=== PATIENT | female | born 2000 | race Caucasian/White ===

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

== ENCOUNTER 2021-01-25 14:05 | Emergency (ER) | payer OTHER ==
[2021-01-25 14:27] LABS: BASOPHILS % (AUTO) 0.7 %; EOSINOPHILS # (AUTO) 0.1 10^3/uL (0.0-0.7); EOSINOPHILS % (AUTO) 1.8 %; HCT - HEMATOCRIT 40.9 % (37.0-47.0); HGB - HEMOGLOBIN 13.9 g/dL (12.0-16.0); LYMPHOCYTES # (AUTO) 1.7 10^3/uL (1.5-3.5); LYMPHOCYTES % (AUTO) 37.4 %; MEAN CORPUSCULAR HEMOGLOBIN 31.4 pg (27.0-31.0); MEAN CORPUSCULAR VOLUME 92.5 fL (81.0-99.0); MEAN PLATELET VOLUME 10.1 fL (7.9-10.8); MONOCYTES # (AUTO) 0.4 10^3/uL (0.0-1.0); MONOCYTES % (AUTO) 7.8 %; NEUTROPHILS # (AUTO) 2.4 10^3/uL (1.5-6.6); NEUTROPHILS % (AUTO) 52.3 %; PLT - PLATELET COUNT 218 10^3/uL (130-450); RED BLOOD COUNT 4.42 10^6/uL (4.20-5.40); RED CELL DISTRIBUTION WIDTH 12.2 % (12.0-15.0); WHITE BLOOD COUNT 4.5 x10^3/uL (4.8-10.8)
[2021-01-25] MEDS ORDERED: KETOROLAC 15 MG/ML VIAL IVP STA (14:32)
--- NOTE | 2021-01-25 14:33 | ED Physician Documentation ---
PD HPI ABD PAIN - Stated complaint Stated Complaint: ABD PX - Chief complaint Chief Complaint: Abd Pain - History obtained from History obtained from: Patient - Additional information Additional information: 20-year-old has had right mid and upper abdominal pain today not associate with fevers or vomiting. No chance of . No urinary complaints. She thought she may be constipated but had a BM this morning which did not change the pain. It is worse with movement. It radiates to the right flank. Nothing else makes it better or worse. She has not had this before. Review of Systems Ten Systems: 10 systems reviewed and negative Constitutional: denies: Fever, Chills Ears: reports: Reviewed and negative Nose: reports: Reviewed and negative Throat: reports: Reviewed and negative Cardiac: reports: Reviewed and negative Respiratory: reports: Reviewed and negative PD PAST MEDICAL HISTORY - Past Medical History Respiratory: Asthma GI: GERD - Past Surgical History Past Surgical History: No - Present Medications Home Medications: Ambulatory Orders Medication Instructions Recorded Confirmed Cefdinir 300 mg PO BID #20 cap 01/25/21 - Allergies Allergies/Adverse Reactions: Allergies Allergy/AdvReac Type Severity Reaction Status Date / Time shellfish derived Allergy Unknown Verified 01/25/21 14:12 soy Allergy Unknown Verified 01/25/21 14:12 - Social History Does the pt smoke?: No Smoking Status: Never smoker Does the pt drink ETOH?: No Does the pt have substance abuse?: No - Immunizations Immunizations are current?: Yes - POLST Patient has POLST: No PD ED PE NORMAL - Vitals Vital signs reviewed: Yes - General General: Alert and oriented X 3, No acute distress - HEENT HEENT: PERRL, EOMI - Neck Neck: Supple, no meningeal sign, No bony TTP - Cardiac Cardiac: RRR, No murmur - Respiratory Respiratory: No respiratory distress, Clear bilaterally - Abdomen Abdomen: Other (Points to the right mid and upper abdomen as the site of pain, however the pain is not reproducible with palpation. Bedside ultrasound shows a grossly normal gallbladder.) - Back Back: No CVA TTP, No spinal TTP - Derm Derm: Normal color, Warm and dry - Extremities Extremities: No edema, No calf tenderness / cord - Neuro Neuro: Alert and oriented X 3, Normal speech Results - Vitals Vitals: Vital Signs - 24 hr 01/25/21 14:09 Temperature 36.9 C Heart Rate 67 Respiratory 18 Rate Blood Pressure 125/64 O2 Saturation 99 Oxygen O2 Source Room air - Labs Labs: Laboratory Tests 01/25/21 01/25/21 01/25/21 14:22 14:23 14:23 WBC 4.5 L RBC 4.42 Hgb 13.9 Hct 40.9 MCV 92.5 MCH 31.4 H MCHC 34.0 RDW 12.2 Plt Count 218 MPV 10.1 Neut # (Auto) 2.4 Lymph # (Auto) 1.7 [place] # (Auto) 0.4 Eos # (Auto) 0.1 Baso # (Auto) 0.0 Absolute Nucleated RBC 0.00 Nucleated RBC % 0.0 Sodium 138 Potassium 3.7 Chloride 101 Carbon Dioxide 28 Anion Gap 9.0 BUN 14 Creatinine 0.6 Estimated GFR (MDRD) 127 Glucose 88 Calcium 9.1 Total Bilirubin 0.9 AST 23 ALT 29 Alkaline Phosphatase 45 Total Protein 8.3 H Albumin 4.6 Globulin 3.7 Albumin/Globulin Ratio 1.2 Lipase 27 Urine Color YELLOW Urine Clarity CLEAR Urine pH 8.0 H Ur Specific [place] 1.020 Urine Protein NEGATIVE Urine Glucose (UA) NEGATIVE Urine Ketones NEGATIVE Urine Occult Blood NEGATIVE Urine Nitrite NEGATIVE Urine Bilirubin NEGATIVE Urine Urobilinogen 0.2 (NORMAL) Ur Leukocyte Esterase TRACE H Urine RBC 0-5 Urine WBC 0-3 Ur Squamous Epith Cells FEW Squamous Urine Bacteria Few Urine Mucus Moderate Strands Ur Microscopic Review INDICATED Urine Culture Comments INDICATED Urine HCG, Qual NEGATIVE PD MEDICAL DECISION MAKING - ED course ED course: 20-year-old presents with right-sided abdominal pain, minimally if at all tender. Lab work demonstrates a soft positive urine with CT showing only right renal cyst. No appendicitis or gallbladder etiology. Will treat as pyelonephritis given the physical findings and complaint. Departure - Departure Disposition: 01 Home, Self Care Clinical Impression: Pyelonephritis Condition: Good Record reviewed to determine appropriate education?: Yes Instructions: Pyelonephritis Dc Prescriptions: Cefdinir 300 mg PO BID #20 cap Comments: Call your doctor to arrange a follow-up appointment, make the next available appointment. In the interim, return anytime if worse or if new symptoms develop. We will culture your urine, the results should be done in 48-72 hours. If an antibiotic change is necessary we will call you. Return if worse in the meantime, especially if you develop increasing flank pain, fevers, or cannot keep down the medication. Forms: Activity restrictions
[2021-01-25 14:39] LABS: ALBUMIN 4.6 g/dL (3.2-5.5); ALBUMIN/GLOBULIN RATIO 1.2 (1.0-2.2); BILIRUBIN,TOTAL 0.9 mg/dL (0.2-1.0); CALCIUM 9.1 mg/dL (8.5-10.3); CREATININE 0.6 mg/dL (0.4-1.0); POTASSIUM 3.7 mmol/L (3.5-5.0); TOTAL PROTEIN 8.3 g/dL (6.7-8.2)
[2021-01-25 14:44] LABS: BILIRUBIN,URINE NEGATIVE (NEGATIVE); GLUCOSE, URINE (UA) NEGATIVE (NEGATIVE); KETONES,URINE (UA) NEGATIVE (NEGATIVE); LEUKOCYTE ESTERASE, URINE TRACE (NEGATIVE); NITRITE,URINE NEGATIVE (NEGATIVE); OCCULT BLOOD,URINE NEGATIVE (NEGATIVE); PROTEIN,URINE NEGATIVE (NEGATIVE); UROBILINOGEN,URINE 0.2 (NORMAL) E.U./dL (NORMAL)
[2021-01-25 14:58] LABS: CLARITY,URINE CLEAR (CLEAR); HCG UR QUAL NEGATIVE
[2021-01-25 15:02] LABS: BACTERIA,URINE Few /HPF (None Seen); MUCUS,URINE Moderate Strands; RBC,URINE 0-5 /HPF (0-5); SQUAMOUS EPITHELIAL CELL,UR FEW Squamous (<= Few); WBC,URINE 0-3 /HPF (0-5)
[2021-01-25] MEDS ORDERED: IOPAMIDOL-300 100 ML VIAL ONE (16:07)
--- NOTE | 2021-01-25 16:13 | CT Report ---
PROCEDURE: Abdomen/Pelvis W INDICATIONS: IV only, R abd pain CONTRAST: IV CONTRAST: Isovue 300 ml: 100 PO CONTRAST: *NO PO CONTRAST TECHNIQUE: After the administration of IV contrast, 5 mm thick sections acquired from the diaphragms to the symp hysis. 5 mm thick coronal and sagittal reformats were acquired. For radiation dose reduction, the f ollowing was used: automated exposure control, adjustment of mA and/or kV according to patient size. COMPARISON: None. FINDINGS: ABDOMEN: Lung bases: Normal Heart:Normal. Liver: Normal. Gallbladder: Normal. Bile ducts: Normal. Pancreas: Normal. Spleen: Normal. Adrenals: Normal. Kidneys and ureters: Incidentally noted subcentimeter right renal cyst. No hydronephrosis. Stomach and duodenum: Normal. Bowel: Normal appendix. No evidence of bowel obstruction. No definite bowel wall thickening. Other: No free fluid or air. Abdominal nodes: Normal. Aorta: Normal in size. IVC: Normal. Ventral wall: Normal. PELVIS: Bladder: Normal. Pelvic nodes: Normal. Inguinal: No hernia. Bones: No vertebral body compression fracture. No suspicious bone lesion. IMPRESSION: No acute abnormality. Normal appearance of the appendix. Right renal cyst. Reviewed by: Remi Mike MD on 01/25/2021 4:11 PM PDT Approved by: Remi Mike MD on 01/25/2021 4:11 PM PDT Station ID: [id number]
[2021-01-25 16:42] VITALS: BP 105/63
[2021-01-25] MEDS ORDERED: IOPAMIDOL-300 100 ML VIAL IVP ONE (17:23)
== END 2021-01-25 16:51 | disposition home or self-care (01) ==
LOC: ED 14:05
DX: N12 Tubulo-interstitial nephritis, not specified as acute or chronic (principal)
CPT/HCPCS: 36415; 74177; 80053; 81001; 81025; 83690; 85025; 87086; 96374; 99284; A9270; Q9967; 81003

== ENCOUNTER 2021-02-11 08:00 | Outpatient (CLI) | payer OTHER | END 2021-02-11 23:59 | disposition home or self-care (01) | LOC: LAB.N 08:00 | PROVIDERS: ATTEND Physician Assistant Medical | DX: J01.90 Acute sinusitis, unspecified (principal); Z20.822 Contact with and (suspected) exposure to COVID-19 ==

== ENCOUNTER 2021-02-12 09:39 | Emergency (ER) | payer OTHER ==
--- NOTE | 2021-02-12 09:52 | ED Physician Documentation ---
PD HPI URI - Stated complaint Stated Complaint: NOSE BLEED/COUGH CONGESTION - History obtained from History obtained from: Patient - History of Present Illness Timing - onset: How many days ago (3) Timing duration: Days (several) Timing details: Gradual onset, Still present Associated symptoms: Chills, Nasal congestion, Rhinorrhea (with mild bleeding at times, and brief more nosebleed this morning after blowing nose.), Sore throat, Dry cough. No: Chest pain, Dyspnea Contributing factors: Sick contact (she was camping with family members that were sick; they tested positive for COVID few days ago. Patient got COVID test yesterday, but results not back yet. Feeling ill.). No: Unimmunized (She states she had both shots of the Covid vaccine in September.) Improves by: No: Medication (not improved with Ibuprofen last night.) Worsened by: Activity Similar symptoms before: Has not had sx before Recently seen: Clinic (had COVID test at walk in clinic yesterday; results pending. No Rx given.) Review of Systems Constitutional: reports: Chills, Myalgias, Fatigue. denies: Fever Ears: reports: Ear pain (fullness right ear) Nose: reports: Rhinorrhea / runny nose, Congestion, Epistaxis (brief today and last night) Throat: reports: Sore throat Respiratory: reports: Cough. denies: Dyspnea, Wheezing GI: reports: Nausea. denies: Vomiting, Diarrhea Skin: denies: Rash Neurologic: reports: Generalized weakness. denies: Near syncope, Headache PD PAST MEDICAL HISTORY - Past Medical History Cardiovascular: None Respiratory: Asthma Neuro: None Endocrine/Autoimmune: None GI: GERD - Past Surgical History Past Surgical History: No - Present Medications Home Medications: Ambulatory Orders Medication Instructions Recorded Confirmed Cefdinir 300 mg PO BID #20 cap 01/25/21 Cetirizine [ZyrTEC] 10 mg PO BID #20 tablet 02/12/21 Oxymetazoline HCl [Afrin] 1 spray NS Q6H PRN #15 ml 02/12/21 dexAMETHasone [Decadron] 4 mg PO DAILY #5 tablet 02/12/21 - Allergies Allergies/Adverse Reactions: Allergies Allergy/AdvReac Type Severity Reaction Status Date / Time shellfish derived Allergy Unknown Verified 02/12/21 09:57 soy Allergy Unknown Verified 02/12/21 09:57 - Social History Does the pt smoke?: No Smoking Status: Never smoker Does the pt drink ETOH?: No Does the pt have substance abuse?: No - Immunizations Immunizations are current?: Yes - POLST Patient has POLST: No PD ED PE NORMAL - Vitals Vital signs reviewed: Yes - General General: Alert and oriented X 3, Well developed/nourished - HEENT HEENT: Ears normal (with some fluid fullness behind, but no redness. ) - Neck Neck: Supple, no meningeal sign, No adenopathy - Cardiac Cardiac: RRR, No murmur - Respiratory Respiratory: No respiratory distress, Clear bilaterally - Abdomen Abdomen: Soft, Non tender - Derm Derm: Normal color, Warm and dry, No rash - Neuro Neuro: Alert and oriented X 3, No motor deficit, Normal speech Results - Vitals Vitals: Vital Signs - 24 hr 02/12/21 02/12/21 09:57 11:06 Temperature 37.2 C Heart Rate 80 86 Respiratory 16 18 Rate Blood Pressure 108/90 H 132/64 H O2 Saturation 100 100 Oxygen O2 Source Room air PD MEDICAL DECISION MAKING - ED course Complexity details: considered differential (She had Covid test done yesterday so the result will be faster than also obtain a new 1 today as no indication for a rapid test here. She may have upper respiratory viral illness from another virus but given her close contact with Covid positive family members, most likely to be that.), d/w patient ED course: The patient has been previously vaccinated 4 months ago for Covid with both doses. As such, if she has Covid now it is likely to be just unknowingly symptomatic as it is currently. However she is should still be off work and rested and we can provide some symptom relief. Departure - Departure Disposition: 01 Home, Self Care Clinical Impression: Exposure to COVID-19 virus Upper respiratory infection Qualifiers: URI type: unspecified URI Qualified Code(s): J06.9 - Acute upper respiratory infection, unspecified Condition: Stable Record reviewed to determine appropriate education?: Yes Prescriptions: Oxymetazoline HCl [Afrin] 1 spray NS Q6H PRN #15 ml PRN Reason: Cold Symptons dexAMETHasone [Decadron] 4 mg PO DAILY #5 tablet Cetirizine [ZyrTEC] 10 mg PO BID #20 tablet Comments: Presumably your Covid test should result today or tomorrow if it was obtained yesterday. Stay well-hydrated. Off work today and tomorrow due to feeling ill as well as allowing time for the test results. For the congestion you can use cetirizine twice daily and also Decadron anti- inflammatory daily as directed. Use the Afrin spray periodically today and tomorrow to help with congestion and also to decrease blood flow in the nostrils and therefore less bleeding. Also obtain some saline nose spray and use that frequently through the day to keep it moisturized. Tylenol or ibuprofen as needed for fevers or pains. Forms: Activity restrictions Discharge Date/Time: 02/12/21 11:11
[2021-02-12] MEDS ORDERED: DEXAMETHASONE 10 MG/ML VIAL PO STA (10:16)
[2021-02-12] MEDS ORDERED: ACETAMINOPHEN 325 MG TABLET PO STA (10:16)
[2021-02-12] MEDS ORDERED: CETIRIZINE 10 MG TABLET PO STA (10:16)
[2021-02-12] MEDS ORDERED: OXYMETAZOLINE HCL 100 SPRAYS BOTTLE NAS STA (10:16)
[2021-02-12] MEDS ORDERED: CHERRY SYRUP 10 ML UDC PO ONE (10:16)
[2021-02-12 11:07] VITALS: BP 132/64
== END 2021-02-12 11:11 | disposition home or self-care (01) ==
LOC: ED 09:39
DX: J06.9 Acute upper respiratory infection, unspecified (principal); Z20.822 Contact with and (suspected) exposure to COVID-19
CPT/HCPCS: 99282; 99283; A9270

== ENCOUNTER 2021-03-10 08:00 | Outpatient (CLI) | payer OTHER ==
--- NOTE | 2021-03-10 17:05 | XRAY Report ---
PROCEDURE: Knee 2 View RT INDICATIONS: R KNEE PX TECHNIQUE: 2 views of the right knee(s) were acquired. COMPARISON: None. FINDINGS: Bones: No fractures or dislocations. No suspicious bony lesions. Soft tissues: No joint effusion. No suspicious soft tissue calcifications. IMPRESSION: No acute osseous abnormality. Reviewed by: Tristen Woodson MD on 03/10/2021 4:04 PM MARY Approved by: Tristen Woodson MD on 03/10/2021 4:04 PM [facility] Station ID: [id number]
== END 2021-03-10 23:59 | disposition home or self-care (01) ==
LOC: DI.N 08:00
PROVIDERS: ATTEND Family Medicine
DX: M25.561 Pain in right knee (principal)

== ENCOUNTER 2023-05-02 00:18 | Emergency (ER) | payer OTHER ==
[2023-05-02] MEDS ORDERED: SODIUM CHLORIDE 0.9% 1,000 ML IV STA (00:42)
[2023-05-02 00:48] LABS: BASOPHILS # (AUTO) 0.1 10^3/uL (0.0-0.1); BASOPHILS % (AUTO) 0.4 %; EOSINOPHILS # (AUTO) 0.1 10^3/uL (0.0-0.7); HCT - HEMATOCRIT 40.9 % (37.0-47.0); HGB - HEMOGLOBIN 13.9 g/dL (12.0-16.0); LYMPHOCYTES # (AUTO) 0.7 10^3/uL (1.5-3.5); LYMPHOCYTES % (AUTO) 5.2 %; MEAN CORPUSCULAR VOLUME 91.1 fL (81.0-99.0); MONOCYTES # (AUTO) 0.8 10^3/uL (0.0-1.0); MONOCYTES % (AUTO) 5.6 %; NEUTROPHILS % (AUTO) 87.5 %; PLT - PLATELET COUNT 241 10^3/uL (130-450); RED BLOOD COUNT 4.49 10^6/uL (4.20-5.40); RED CELL DISTRIBUTION WIDTH 11.9 % (12.0-15.0); WHITE BLOOD COUNT 13.7 x10^3/uL (4.8-10.8)
[2023-05-02 00:59] LABS: ALBUMIN 4.8 g/dL (3.2-5.5); ALBUMIN/GLOBULIN RATIO 1.6 (1.0-2.2); BILIRUBIN,TOTAL 0.7 mg/dL (0.2-1.0); CALCIUM 9.4 mg/dL (8.5-10.3); CREATININE 0.7 mg/dL (0.6-1.3); POTASSIUM 3.6 mmol/L (3.5-4.5); TOTAL PROTEIN 7.8 g/dL (6.4-8.9)
[2023-05-02 01:06] LABS: BILIRUBIN,URINE NEGATIVE (NEGATIVE); GLUCOSE, URINE (UA) NEGATIVE (NEGATIVE); KETONES,URINE (UA) TRACE mg/dL (NEGATIVE); LEUKOCYTE ESTERASE, URINE SMALL (NEGATIVE); NITRITE,URINE NEGATIVE (NEGATIVE); OCCULT BLOOD,URINE NEGATIVE (NEGATIVE); PROTEIN,URINE NEGATIVE (NEGATIVE); UROBILINOGEN,URINE 0.2 (NORMAL) E.U./dL (NORMAL)
--- NOTE | 2023-05-02 01:27 | ED Physician Documentation ---
PD HPI ABD PAIN - Stated complaint Stated Complaint: FEVER/VOMITING/ABD PX - Chief complaint Chief Complaint: Abd Pain - History obtained from History obtained from: Patient - Additional information Additional information: HPI from patient. Patient complains of abdominal pain associate with nausea and vomiting, sore throat, bilateral ear pain. She has had fevers at home with Tmax 100.4 this evening. She has had abdominal discomfort for several days, but becoming worse since this afternoon. The sore throat and ear pain started this morning. She denies shortness of breath, cough. Denies diarrhea. The abdominal pain is exacerbated with palpation. Review of Systems Constitutional: reports: Fever Ears: reports: Ear pain Throat: reports: Sore throat Cardiac: reports: Reviewed and negative Respiratory: reports: Reviewed and negative GI: reports: Abdominal Pain, Nausea, Vomiting. denies: Diarrhea : denies: Now EGA Skin: denies: Rash PD PAST MEDICAL HISTORY - Past Medical History Past Medical History: Yes Cardiovascular: None Respiratory: Asthma Neuro: None Endocrine/Autoimmune: None GI: GERD - Past Surgical History Past Surgical History: No - Present Medications Home Medications: Ambulatory Orders Medication Instructions Recorded Confirmed cephALEXin [Keflex] 500 mg PO BID #19 cap 05/02/23 - Allergies Allergies/Adverse Reactions: Allergies Allergy/AdvReac Type Severity Reaction Status Date / Time shellfish derived Allergy Unknown Verified 05/02/23 00:30 soy Allergy Unknown Verified 05/02/23 00:30 - Social History Does the pt smoke?: No Smoking Status: Never smoker Does the pt drink ETOH?: No Does the pt have substance abuse?: No - Immunizations Immunizations are current?: Yes - POLST Patient has POLST: No PD ED PE NORMAL - Vitals Vital signs reviewed: Yes - General General: Alert and oriented X 3, No acute distress, Well developed/nourished - Cardiac Cardiac: No murmur - Respiratory Respiratory: No respiratory distress, Clear bilaterally - Abdomen Abdomen: Soft, Non distended, Other (diffuse TTP , most pronounced across lower abdomen and RLQ>LLQ) PD ED PE EXPANDED - Cardiac Cardiac: Tachy, Regular Rhythm Results - Vitals Vitals: Vital Signs - 24 hr 05/02/23 05/02/23 05/02/23 00:27 01:34 02:36 Temperature 37.7 C 36.4 C L Heart Rate 109 H 107 H 87 Respiratory 18 18 16 Rate Blood Pressure 127/78 110/78 106/64 O2 Saturation 100 98 95 05/02/23 05/02/23 04:02 04:45 Temperature 37.4 C 36.9 C Heart Rate 94 89 Respiratory 16 16 Rate Blood Pressure 109/64 110/64 O2 Saturation 100 99 Oxygen O2 Source Room air - Labs Labs: Laboratory Tests 05/02/23 05/02/23 05/02/23 00:40 00:40 00:40 WBC 13.7 H RBC 4.49 Hgb 13.9 Hct 40.9 MCV 91.1 MCH 31.0 MCHC 34.0 RDW 11.9 L Plt Count 241 MPV 11.0 H Neut # (Auto) 12.0 H Lymph # (Auto) 0.7 L [place] # (Auto) 0.8 Eos # (Auto) 0.1 Baso # (Auto) 0.1 Absolute Nucleated RBC 0.00 Nucleated RBC % 0.0 Sodium 137 Potassium 3.6 Chloride 103 Carbon Dioxide 28 Anion Gap 6.0 BUN 10 Creatinine 0.7 Estimated GFR (MDRD) 105 Glucose 108 H Calcium 9.4 Total Bilirubin 0.7 AST 16 ALT 11 Alkaline Phosphatase 46 Total Protein 7.8 Albumin 4.8 Globulin 3.0 Albumin/Globulin Ratio 1.6 Lipase 19 Urine Color YELLOW Urine Clarity CLEAR Urine pH 6.0 Ur Specific [place] 1.020 Urine Protein NEGATIVE Urine Glucose (UA) NEGATIVE Urine Ketones TRACE Urine Occult Blood NEGATIVE Urine Nitrite NEGATIVE Urine Bilirubin NEGATIVE Urine Urobilinogen 0.2 (NORMAL) Ur Leukocyte Esterase SMALL H Urine RBC None Seen Urine WBC 6-10 H Ur Squamous Epith Cells MOD Squamous H Urine Bacteria Rare Ur Microscopic Review INDICATED Urine Culture Comments NOT INDICATED Urine HCG, Qual Nasal Adenovirus (PCR) Nasal B. parapertussis DNA (PCR) Nasal Coronavir 229E PCR Nasal Coronavir HKU1 PCR Nasal Coronavir NL63 PCR Nasal Coronavir OC43 PCR Nasal Enterovir/Rhinovir PCR Nasal Influenza B PCR Nasal Influenza A PCR Nasal Parainfluen 1 PCR Nasal Parainfluen 2 PCR Nasal Parainfluen 3 PCR Nasal Parainfluen 4 PCR Nasal RSV (PCR) Nasal B.pertussis DNA PCR Nasal C.pneumoniae (PCR) Adam Human Metapneumo PCR Nasal M.pneumoniae (PCR) Nasal SARS-CoV-2 (PCR) Infectious [place] Assay Group A Strep Rapid 05/02/23 05/02/23 05/02/23 00:40 00:40 01:54 WBC RBC Hgb Hct MCV MCH MCHC RDW Plt Count MPV Neut # (Auto) Lymph # (Auto) [place] # (Auto) Eos # (Auto) Baso # (Auto) Absolute Nucleated RBC Nucleated RBC % Sodium Potassium Chloride Carbon Dioxide Anion Gap BUN Creatinine Estimated GFR (MDRD) Glucose Calcium Total Bilirubin AST ALT Alkaline Phosphatase Total Protein Albumin Globulin Albumin/Globulin Ratio Lipase Urine Color Urine Clarity Urine pH Ur Specific [place] Urine Protein Urine Glucose (UA) Urine Ketones Urine Occult Blood Urine Nitrite Urine Bilirubin Urine Urobilinogen Ur Leukocyte Esterase Urine RBC Urine WBC Ur Squamous Epith Cells Urine Bacteria Ur Microscopic Review Urine Culture Comments Urine HCG, Qual NEGATIVE Nasal Adenovirus (PCR) Nasal B. parapertussis DNA (PCR) Nasal Coronavir 229E PCR Nasal Coronavir HKU1 PCR Nasal Coronavir NL63 PCR Nasal Coronavir OC43 PCR Nasal Enterovir/Rhinovir PCR Nasal Influenza B PCR Nasal Influenza A PCR Nasal Parainfluen 1 PCR Nasal Parainfluen 2 PCR Nasal Parainfluen 3 PCR Nasal Parainfluen 4 PCR Nasal RSV (PCR) Nasal B.pertussis DNA PCR Nasal C.pneumoniae (PCR) Adam Human Metapneumo PCR Nasal M.pneumoniae (PCR) Nasal SARS-CoV-2 (PCR) Infectious [place] Assay POSITIVE A Group A Strep Rapid POSITIVE H 05/02/23 01:54 WBC RBC Hgb Hct MCV MCH MCHC RDW Plt Count MPV Neut # (Auto) Lymph # (Auto) [place] # (Auto) Eos # (Auto) Baso # (Auto) Absolute Nucleated RBC Nucleated RBC % Sodium Potassium Chloride Carbon Dioxide Anion Gap BUN Creatinine Estimated GFR (MDRD) Glucose Calcium Total Bilirubin AST ALT Alkaline Phosphatase Total Protein Albumin Globulin Albumin/Globulin Ratio Lipase Urine Color Urine Clarity Urine pH Ur Specific [place] Urine Protein Urine Glucose (UA) Urine Ketones Urine Occult Blood Urine Nitrite Urine Bilirubin Urine Urobilinogen Ur Leukocyte Esterase Urine RBC Urine WBC Ur Squamous Epith Cells Urine Bacteria Ur Microscopic Review Urine Culture Comments Urine HCG, Qual Nasal Adenovirus (PCR) NOT DETECTED Nasal B. parapertussis DNA (PCR) NOT DETECTED Nasal Coronavir 229E PCR NOT DETECTED Nasal Coronavir HKU1 PCR NOT DETECTED Nasal Coronavir NL63 PCR NOT DETECTED Nasal Coronavir OC43 PCR NOT DETECTED Nasal Enterovir/Rhinovir PCR NOT DETECTED Nasal Influenza B PCR NOT DETECTED Nasal Influenza A PCR NOT DETECTED Nasal Parainfluen 1 PCR NOT DETECTED Nasal Parainfluen 2 PCR NOT DETECTED Nasal Parainfluen 3 PCR NOT DETECTED Nasal Parainfluen 4 PCR NOT DETECTED Nasal RSV (PCR) NOT DETECTED Nasal B.pertussis DNA PCR NOT DETECTED Nasal C.pneumoniae (PCR) NOT DETECTED Adam Human Metapneumo PCR NOT DETECTED Nasal M.pneumoniae (PCR) NOT DETECTED Nasal SARS-CoV-2 (PCR) NOT DETECTED Infectious [place] Assay Group A Strep Rapid - Rads (name of study) CT A/P Relevant Findings:: Prelim report reviewed, See rad report PD Medical Decision Making - ED course Complexity details: reviewed results, re-evaluated patient, considered differential, d/w patient ED course: Normal ER abdominal panel. Respiratory PCR viral panel is negative for the vi ruses tested. Mild leukocytosis on CBC (WBC 13.7). Throat swab is positive for strep. Serum Monospot is also positive. CT of the abdomen and pelvis with intravenous contrast is without abnormality including no evidence of splenic enlargement nor appendicitis. Patient is given 10 mg p.o. Decadron, 1 L normal saline IV for rehydration, 4 mg IV Zofran for her nausea/vomiting, 30 mg IV Toradol, and 500 mg p.o. Keflex for the strep throat. Results are discussed with patient. Return precautions are reviewed. Inform patient that some patients with mono will develop a rash when given antibiotics (although some patients with mono will get a rash even without antibiotics). I explained that this is not an allergic reaction in most cases, but that if she has throat or chest tightness, wheezing, difficulty breathing, lightheadedness, then she should stop the antibiotic. A prescription for a course of BID Keflex is electronically submitted to her pharmacy of choice. Departure - Departure Disposition: 01 Home, Self Care Clinical Impression: Strep pharyngitis Mononucleosis Qualifiers: Infectious mononucleosis etiology: unspecified organism Infectious mononucleosis complication: without complication Qualified Code(s): B27.90 - Infectious mononucleosis, unspecified without complication Condition: Good Instructions: ED Mononucleosis, ED Strep Pharyngitis Conf Prescriptions: cephALEXin [Keflex] 500 mg PO BID #19 cap Comments: There were no concerning nor diagnostic findings on tonight's CT scan of your abdomen and pelvis. The throat swab is positive for strep. A blood test for mononucleosis also was positive for mono. Mononucleosis is caused by a virus; there is no specific treatment. Rest and staying hydrated is the mainstay of treatment for mononucleosis. For the strep throat, you were given the first dose of an antibiotic (cephalexin) in the emergency department, and I have electronically submitted a prescription for a 10-day course of this antibiotic to the [facility] pharmacy in [place]. Forms: Activity restrictions Discharge Date/Time: 05/02/23 04:50
[2023-05-02 01:35] LABS: CLARITY,URINE CLEAR (CLEAR)
[2023-05-02 01:36] LABS: HCG UR QUAL NEGATIVE; RBC,URINE None Seen /HPF (0-5)
[2023-05-02 01:37] LABS: BACTERIA,URINE Rare /HPF (None Seen); SQUAMOUS EPITHELIAL CELL,UR MOD Squamous (<= Few)
[2023-05-02] MEDS ORDERED: ONDANSETRON 4 MG/2 ML VIAL IVP STA (02:05)
[2023-05-02] MEDS ORDERED: KETOROLAC 30 MG/ML VIAL IVP STA (02:05)
[2023-05-02 02:22] LABS: RAPID STREP SCREEN POSITIVE (Negative)
[2023-05-02 02:37] LABS: INFECTIOUS MONONUCLEOSIS POSITIVE (Negative)
[2023-05-02 03:04] LABS: CORONAVIRUS 229E-RESP PCR NOT DETECTED; CORONAVIRUS HKU1-RESP PCR NOT DETECTED; CORONAVIRUS NL63-RESP PCR NOT DETECTED; CORONAVIRUS OC43-RESP PCR NOT DETECTED; HUMAN METAPNEUMOVIRUS NOT DETECTED; INFLUENZA A- RESP PCR PANEL NOT DETECTED; RHINOVIRUS/ENTEROVIRUS NOT DETECTED; SARS-CoV-2 -RESP PCR PANEL NOT DETECTED
[2023-05-02 03:05] LABS: B. PARAPERTUSSIS- RESP PCR PAN NOT DETECTED; B. PERTUSSIS- RESP PCR PANEL NOT DETECTED; C. PNEUMONIAE- RESP PCR PANEL NOT DETECTED; INFLUENZA B - RESP PCR PANEL NOT DETECTED; M. PNEUMONIAE- RESP PCR PANEL NOT DETECTED; PARAINFLUENZA VIRUS 1 NOT DETECTED; PARAINFLUENZA VIRUS 2 NOT DETECTED; PARAINFLUENZA VIRUS 3 NOT DETECTED; PARAINFLUENZA VIRUS 4 NOT DETECTED; RSV- RESP PCR PANEL NOT DETECTED
[2023-05-02] MEDS ORDERED: iohexoL-300 100 ML VIAL IVP ONE (03:17)
[2023-05-02] MEDS ORDERED: cephALEXin 250 MG CAPSULE PO STA (04:35)
[2023-05-02] MEDS ORDERED: CHERRY SYRUP 10 ML UDC PO ONE (04:35)
[2023-05-02] MEDS ORDERED: DEXAMETHASONE 10 MG/ML VIAL PO STA (04:35)
[2023-05-02 05:09] VITALS: BP 110/64; O2SAT 99
--- NOTE | 2023-05-02 08:54 | CT Report ---
PROCEDURE: ABDOMEN/PELVIS W INDICATIONS: abdominal pain/tenderness CONTRAST: 100 ML OMNI 300 TECHNIQUE: After the administration of intravenous contrast, 5 mm thick sections acquired from the diaphragms to the symphysis. 5 mm thick coronal and sagittal reformats were acquired. For radiation dose reducti on, the following was used: automated exposure control, adjustment of mA and/or kV according to torsten ent size. COMPARISON: 01/25/2021 FINDINGS: Image quality: Excellent. Lung bases and heart: Unremarkable. Liver: No solid mass. Gallbladder and biliary tree: Spleen: No splenomegaly. Pancreas: No pancreatic ductal dilation. Adrenals: No adrenal nodule. Kidneys and ureters: No hydronephrosis. No renal cystic lesion which requires follow up. No solid mas s. Bowel and peritoneum: No bowel distension. No pathologic free fluid. Normal appendix. Lymph nodes: No central or retroperitoneal adenopathy. Vessels: No infrarenal aortic aneurysm. PELVIS Reproductive organs: Unremarkable. Bladder: No abnormal wall thickening, accounting for underdistension. Pelvic lymph nodes: No pelvic adenopathy by size criteria. Bones: No aggressive osseous abnormality. Other: No significant ventral or inguinal hernia. IMPRESSION: 1. No evidence of acute process. 2. Normal appendix. Reviewed by: Mick Johnson MD on 05/02/2023 8:52 AM PDT Approved by: Mick Johnson MD on 05/02/2023 8:52 AM PDT Station ID: [id number]
== END 2023-05-02 04:50 | disposition home or self-care (01) ==
LOC: ED 00:18
DX: J02.0 Streptococcal pharyngitis (principal); B27.90 Infectious mononucleosis, unspecified without complication; Z20.822 Contact with and (suspected) exposure to COVID-19
CPT/HCPCS: 36415; 74177; 80053; 81001; 81025; 83690; 85025; 86308; 87430; 87633; 96361; 96374; 96375; 99284; A9270; Q9967; 81003; 87086

== ENCOUNTER 2023-06-13 13:22 | Outpatient (CLI) | payer OTHER ==
[2023-06-13 19:23] LABS: CREATININE 0.7 mg/dL (0.6-1.3); POTASSIUM 3.4 mmol/L (3.5-4.5)
[2023-06-13 19:24] LABS: HCT - HEMATOCRIT 40.1 % (37.0-47.0); HGB - HEMOGLOBIN 12.7 g/dL (12.0-16.0); MEAN CORPUSCULAR HEMOGLOBIN 30.9 pg (27.0-31.0); MEAN CORPUSCULAR HGB CONC 31.7 g/dL (32.0-36.0); MEAN CORPUSCULAR VOLUME 97.6 fL (81.0-99.0); MEAN PLATELET VOLUME 11.9 fL (7.9-10.8); RED BLOOD COUNT 4.11 10^6/uL (4.20-5.40); RED CELL DISTRIBUTION WIDTH 12.9 % (12.0-15.0); WHITE BLOOD COUNT 8.3 x10^3/uL (4.8-10.8)
[2023-06-13 19:38] LABS: THYROID STIMULATING HORMONE 2.27 uIU/mL (0.34-5.60)
[2023-06-13 19:42] LABS: FERRITIN 48.5 ng/mL (11.0-306.8)
== END 2023-06-13 13:23 | disposition home or self-care (01) ==
LOC: LAB.N 13:22
PROVIDERS: ATTEND Family Medicine
DX: N94.6 Dysmenorrhea, unspecified (principal)
CPT/HCPCS: 36415; 80048; 82728; 84443; 85027

== ENCOUNTER 2023-08-04 08:00 | Outpatient (CLI) | payer OTHER ==
[2023-08-04 18:09] LABS: BACTERIAL VAGINOSIS DNA NEGATIVE (NEGATIVE); CANDIDA GLABRATA DNA NEGATIVE (NEGATIVE); CANDIDA GROUP DNA NEGATIVE (NEGATIVE); CANDIDA KRUSEI DNA NEGATIVE (NEGATIVE); TRICHOMONAS VAGINALIS DNA NEGATIVE (NEGATIVE)
[2023-08-04 20:14] LABS: CHLAMYDIA TRACHOMATIS DNA NEGATIVE (NEGATIVE); NEISSERIA GONORRHOEAE DNA NEGATIVE (NEGATIVE)
== END 2023-08-04 23:59 | disposition home or self-care (01) ==
LOC: LAB.WC 08:00
PROVIDERS: ATTEND Nurse Practitioner
DX: N93.0 Postcoital and contact bleeding (principal); Z11.3 Encounter for screening for infections with a predominantly sexual mode of transmission
CPT/HCPCS: 81514; 81599; 87109; 87491; 87591; 87661

== ENCOUNTER 2023-09-18 09:59 | Emergency (ER) | payer OTHER ==
[2023-09-18 10:19] VITALS: O2SAT 99
[2023-09-18 10:35] LABS: BASOPHILS # (AUTO) 0.1 10^3/uL (0.0-0.1); BASOPHILS % (AUTO) 0.9 %; EOSINOPHILS # (AUTO) 0.4 10^3/uL (0.0-0.7); EOSINOPHILS % (AUTO) 6.4 %; HCT - HEMATOCRIT 44.7 % (37.0-47.0); HGB - HEMOGLOBIN 14.7 g/dL (12.0-16.0); LYMPHOCYTES % (AUTO) 18.5 %; MEAN CORPUSCULAR HEMOGLOBIN 30.6 pg (27.0-31.0); MEAN CORPUSCULAR HGB CONC 32.9 g/dL (32.0-36.0); MEAN CORPUSCULAR VOLUME 92.9 fL (81.0-99.0); MEAN PLATELET VOLUME 11.5 fL (7.9-10.8); MONOCYTES # (AUTO) 0.3 10^3/uL (0.0-1.0); MONOCYTES % (AUTO) 6.2 %; NEUTROPHILS # (AUTO) 3.7 10^3/uL (1.5-6.6); NEUTROPHILS % (AUTO) 67.8 %; PLT - PLATELET COUNT 260 10^3/uL (130-450); RED BLOOD COUNT 4.81 10^6/uL (4.20-5.40); RED CELL DISTRIBUTION WIDTH 12.1 % (12.0-15.0); WHITE BLOOD COUNT 5.5 x10^3/uL (4.8-10.8)
[2023-09-18 10:37] LABS: BILIRUBIN,URINE NEGATIVE (NEGATIVE); GLUCOSE, URINE (UA) NEGATIVE (NEGATIVE); KETONES,URINE (UA) NEGATIVE (NEGATIVE); LEUKOCYTE ESTERASE, URINE NEGATIVE (NEGATIVE); NITRITE,URINE NEGATIVE (NEGATIVE); OCCULT BLOOD,URINE NEGATIVE (NEGATIVE); PROTEIN,URINE NEGATIVE (NEGATIVE); UROBILINOGEN,URINE 0.2 (NORMAL) E.U./dL (NORMAL)
[2023-09-18 10:40] LABS: CLARITY,URINE CLEAR (CLEAR); HCG UR QUAL NEGATIVE
[2023-09-18 10:45] LABS: ALBUMIN/GLOBULIN RATIO 1.6 (1.0-2.2); BILIRUBIN,TOTAL 0.4 mg/dL (0.2-1.0); CALCIUM 9.8 mg/dL (8.5-10.3); CREATININE 0.7 mg/dL (0.6-1.3); POTASSIUM 3.5 mmol/L (3.5-4.5); TOTAL PROTEIN 8.2 g/dL (6.4-8.9)
--- NOTE | 2023-09-18 11:31 | ED Physician Documentation ---
PD HPI GI BLEED - Stated complaint Stated Complaint: - Chief complaint Chief Complaint: Abd Pain - History obtained from History obtained from: Patient - Additional information Additional information: Patient is a 22-year-old female presenting for evaluation of bright red blood per rectum with 2 episodes this morning. Denies any rectal pain, recent constipation, abdominal pain. Denies nausea, vomiting. Has never had a history of this previously. Does not take a blood thinner. Review of Systems Constitutional: denies: Fever Cardiac: denies: Chest pain / pressure Respiratory: denies: Dyspnea GI: reports: Bloody / black stool. denies: Abdominal Pain : denies: Dysuria PD PAST MEDICAL HISTORY - Past Medical History Past Medical History: Yes Cardiovascular: None Respiratory: Asthma Neuro: None Endocrine/Autoimmune: None GI: GERD Psych: Anxiety - Past Surgical History Past Surgical History: No - Present Medications Home Medications: Ambulatory Orders Medication Instructions Recorded Confirmed Escitalopram [Lexapro] 10 mg PO DAILY 09/18/23 09/18/23 Loratadine [Claritin] 10 mg PO DAILY 09/18/23 09/18/23 - Allergies Allergies/Adverse Reactions: Allergies Allergy/AdvReac Type Severity Reaction Status Date / Time shellfish derived Allergy Unknown Verified 09/18/23 10:09 soy Allergy Unknown Verified 09/18/23 10:09 - Social History Does the pt smoke?: No Smoking Status: Never smoker Does the pt drink ETOH?: No Does the pt have substance abuse?: No - Immunizations Immunizations are current?: Yes - POLST Patient has POLST: No PD ED PE NORMAL - General General: Alert and oriented X 3, No acute distress, Well developed/nourished - HEENT HEENT: Atraumatic, Moist mucous membranes, Pharynx benign - Neck Neck: Supple, no meningeal sign - Cardiac Cardiac: RRR, Strong equal pulses - Respiratory Respiratory: No respiratory distress, Clear bilaterally - Abdomen Abdomen: Normal bowel sounds, Soft, Non tender, Non distended - Rectal Rectal: Other (Chaperoned by Genny, normal rectal tone, no fissures, no tenderness on exam, no palpable mass, small amount of bloody mucus on glove but no afia blood) Results - Vitals Vitals: Vital Signs - 24 hr 09/18/23 09/18/23 10:04 11:38 Temperature 37.2 C Heart Rate 82 77 Respiratory 15 18 Rate Blood Pressure 118/65 99/58 L O2 Saturation 99 99 Oxygen O2 Source Room air - Labs Labs: Microbiology 09/18/23 11:17 Occult Blood - Final Stool Laboratory Tests 09/18/23 09/18/23 09/18/23 10:24 10:24 10:24 WBC 5.5 RBC 4.81 Hgb 14.7 Hct 44.7 MCV 92.9 MCH 30.6 MCHC 32.9 RDW 12.1 Plt Count 260 MPV 11.5 H Neut # (Auto) 3.7 Lymph # (Auto) 1.0 L [place] # (Auto) 0.3 Eos # (Auto) 0.4 Baso # (Auto) 0.1 Absolute Nucleated RBC 0.00 Nucleated RBC % 0.0 Sodium 138 Potassium 3.5 Chloride 106 Carbon Dioxide 27 Anion Gap 5.0 L BUN 12 Creatinine 0.7 Estimated GFR (MDRD) 105 Glucose 71 L Calcium 9.8 Total Bilirubin 0.4 AST 19 ALT 16 Alkaline Phosphatase 44 Total Protein 8.2 Albumin 5.0 Globulin 3.2 Albumin/Globulin Ratio 1.6 Urine Color YELLOW Urine Clarity CLEAR Urine pH 6.0 Ur Specific [place] 1.015 Urine Protein NEGATIVE Urine Glucose (UA) NEGATIVE Urine Ketones NEGATIVE Urine Occult Blood NEGATIVE Urine Nitrite NEGATIVE Urine Bilirubin NEGATIVE Urine Urobilinogen 0.2 (NORMAL) Ur Leukocyte Esterase NEGATIVE Ur Microscopic Review NOT INDICATED Urine Culture Comments NOT INDICATED Urine HCG, Qual NEGATIVE PD Medical Decision Making - ED course Complexity details: reviewed results, d/w patient ED course: Patient with 2 episodes of bright red blood per rectum this morning. No pain associated with this. Vital signs are stable and abdominal exam is benign. CBC, chemistry, urinalysis were obtained and reviewed without significant findings. No further episodes here. At this time patient appears stable for close outpatient follow-up and further testing. Patient counseled on need for follow-up with PCP and/or general surgery office for consideration of colonoscopy. She is advised on strict return precautions for worsening symptoms or development of any new symptoms such as pain. Departure - Departure Disposition: 01 Home, Self Care Clinical Impression: Bright red blood per rectum Condition: Stable Instructions: ED Hematochezia Stable Follow-Up: [facility] [Provider Group] Comments: You were evaluated for blood in your stools. At this time your hemoglobin levels are stable as are your vital signs. I would recommend close follow-up with one of our general surgeons to discuss further evaluation with a colonoscopy. Return to the emergency department with any worsening symptoms such as development of pain. Forms: PCP List, Activity restrictions Discharge Date/Time: 09/18/23 11:38
[2023-09-18 11:45] VITALS: BP 99/58
== END 2023-09-18 11:38 | disposition home or self-care (01) ==
LOC: ED 09:59
DX: K62.5 Hemorrhage of anus and rectum (principal)
CPT/HCPCS: 36415; 80053; 81001; 81003; 81025; 82272; 85025; 87086; 99283

== ENCOUNTER 2023-10-06 17:05 | Outpatient (CLI) | payer OTHER ==
[2023-10-06 20:41] LABS: BASOPHILS # (AUTO) 0.1 10^3/uL (0.0-0.1); BASOPHILS % (AUTO) 0.8 %; EOSINOPHILS # (AUTO) 0.4 10^3/uL (0.0-0.7); EOSINOPHILS % (AUTO) 5.8 %; HCT - HEMATOCRIT 46.2 % (37.0-47.0); HGB - HEMOGLOBIN 14.3 g/dL (12.0-16.0); LYMPHOCYTES # (AUTO) 1.8 10^3/uL (1.5-3.5); LYMPHOCYTES % (AUTO) 30.7 %; MEAN CORPUSCULAR HEMOGLOBIN 29.9 pg (27.0-31.0); MEAN CORPUSCULAR VOLUME 96.5 fL (81.0-99.0); MEAN PLATELET VOLUME 11.7 fL (7.9-10.8); MONOCYTES # (AUTO) 0.4 10^3/uL (0.0-1.0); MONOCYTES % (AUTO) 6.3 %; NEUTROPHILS # (AUTO) 3.4 10^3/uL (1.5-6.6); NEUTROPHILS % (AUTO) 56.2 %; PLT - PLATELET COUNT 259 10^3/uL (130-450); RED BLOOD COUNT 4.79 10^6/uL (4.20-5.40); RED CELL DISTRIBUTION WIDTH 12.1 % (12.0-15.0)
[2023-10-06 21:01] LABS: CALCIUM 10.2 mg/dL (8.5-10.3); CREATININE 0.7 mg/dL (0.6-1.3); POTASSIUM 3.8 mmol/L (3.5-4.5)
[2023-10-06 21:35] LABS: THYROID STIMULATING HORMONE 2.51 uIU/mL (0.34-5.60)
== END 2023-10-06 18:07 | disposition home or self-care (01) ==
LOC: LAB.N 17:05
PROVIDERS: ATTEND Physician Assistant Medical
DX: R42 Dizziness and giddiness (principal)
CPT/HCPCS: 36415; 80048; 82607; 82746; 83540; 84443; 84466; 85025